=== PATIENT | female | born 1995 | race Caucasian/White ===

== ENCOUNTER 2017-06-07 08:14 | Emergency (ER) | payer OTHER ==
[~2017-06-07] VITALS: Ht 170.2 cm; Wt 56.8 kg
[~2017-06-07 08:14] MED LIST: OMEP20TA86 PO
[2017-06-07 08:20] VITALS: BP 130/79; PULSE 75; RESP 22; O2SAT 98
--- NOTE | 2017-06-07 08:27 | ED.REPORT ---
HPI-Abd Pain F Under 40 Date of Service Jun 07, 2017 ED Provider: Carlos A Rothman MD Patient is a 22 year old female who presents to the ED complaining of generalized abdominal pain that has been chronic over the last 2 years but is worse today. She has a hiatal hernia. Associated symptom include vomiting, diarrhea, and decreased oral intake. She denies hematemesis, hematochezia, constipation, or any other symptoms. Pt has has similar pain with previous hernias that was resolved with surgery. Her last period was 3 weeks ago. Nursing Notes Stated Complaint: VOMITING/ABDOMINAL PAIN Chief Complaint: Female Abdominal Pain Nursing Notes Reviewed: Yes Allergies: Coded Allergies: No Known Drug Allergies (Verified Allergy, Unknown, 06/07/17) Scheduled Omeprazole (Omeprazole) 20 Mg Tablet.dr 20 MG PO DAILY Omeprazole (Omeprazole) 40 Mg Capsule.dr 40 MG PO BID Ranitidine (Ranitidine) 150 Mg Capsule 150 MG PO DAILY General Time Seen by MD: 08:26 Chief Complaint Abdominal pain Hx Obtained From: Patient, Spouse Arrived By: Walk-in Sudden in Onset?: Yes Onset Occurred: Yesterday Symptom Duration: Since onset Severity: Current: Severe Severity: Maximum: Severe Similar Sx Previous: Yes Past Medical History Past Medical History Dx umbilical hernia x3 in 09/2015 hiatal hernia GERD Past Surgical History Hernia repair Smoking History Never Smoker Social History Drug Use: THC Ambulatory Status Independent Review of Systems Review of Systems Note: +decreased oral intake GI: Reports: Abdominal pain, Diarrhea, Vomiting, Denies: Constipation, Hematemesis, Hematochezia Complete sys rev & neg: except as marked. Physical Exam Initial Vital Signs Vital Signs (First) Date Time Temp Pulse Resp B/P Pulse Ox O2 Delivery O2 Flow Rate FiO2 06/07/17 08:20 36.4 75 22 130/79 98 Room Air Initial VS: Reviewed, Vital signs normal Head / Eyes: Atraumatic, Normocephalic Neck: Full range of motion Skin: Warm, Dry Neurologic: Alert, Oriented, Nonfocal Psychiatric: Mood/affect normal, Behavior normal, Normal thought content General/Constitutional: Awake, Alert Distress / Hydration: Positive: Distress moderate Respiratory / Chest: Atraumatic, Breath sounds NL, Breath sounds = bilat, No respiratory distress Cardiovascular: Heart rate NL, Regular rhythm, Heart sounds NL, No murmurs Abdomen: Atraumatic, Soft Diffuse abdominal tenderness Back: Atraumatic Interpretation & Diagnostics Lab Results Interpretation Result Diagram: 06/07/17 0855 06/07/17 0855 Test 06/07/17 08:53 06/07/17 08:55 Urine Color Yellow (YELLOW) Urine Appearance Hazy (CLEAR,HAZY) Urine pH 6.0 (5.0-8.0) Urine Specific [place] 1.020 (1.003-1.035) Urine Protein Negativemg/dL (NEG,TRACE) Urine Glucose (UA) Negativemg/dL (NEGATIVE) Urine Ketones Tracemg/dL (NEGATIVE) Urine Occult Blood Negative (NEGATIVE) Urine Nitrite Negative (NEGATIVE) Urine Bilirubin Negative (NEGATIVE) Urine Urobilinogen Normalmg/dL (NORMAL) Urine Leukocyte Esterase Negative (NEGATIVE) Urine RBC 0-2/hpf (0-2) Urine WBC 0-5/hpf (0-5) Urine Epithelial Cells Moderate/hpf (NONE-MOD) Urine Crystals None seen (NONE SEEN) Urine Bacteria Moderate/hpf (NONE-FEW) Urine Hyaline Casts None/lpf (NONE) Urine Granular Casts None seen (NONE SEEN) Urine Waxy Casts None seen (NONE SEEN) Urine Red Blood Cell Casts None seen (NONE SEEN) Urine White Blood Cell Casts None seen (NONE SEEN) Urine Mucus Present (None Seen) Urine Trichomonas None seen (NONE SEEN) Urine Yeast None (NONE SEEN) Urinalysis Comment None Urine Culture Reflexed Indicated White Blood Count 8.8th/mm3 (3.8-10.1) Red Blood Count 4.43mil/mm3 (3.90-5.20) Hemoglobin 13.8g/dL (12.0-15.6) Hematocrit 38.5% (35.0-46.0) Mean Corpuscular Volume 86.9fL (81-100) Mean Corpuscular Hemoglobin 31.2pg (27.0-35.0) Mean Corpuscular Hemoglobin Concent 35.8% (32.0-37.0) Red Cell Distribution Width 11.6% (12.3-15.4) Platelet Count 196bil/L (150-400) Neutrophils (%) (Auto) 82.9% (40-74) Lymphocytes (%) (Auto) 12.7% (14-46) Monocytes (%) (Auto) 3.9% (4-12) Eosinophils (%) (Auto) 0.3% (0-5) Basophils (%) (Auto) 0.1% (0-3) Sodium Level 142mEq/L (134-144) Potassium Level 3.6mEq/L (3.5-5.2) Chloride Level 107mEq/L (97-108) Carbon Dioxide Level 20mmol/L (18-29) Blood Urea Nitrogen 12mg/dL (6-20) Creatinine 0.70mg/dL (0.57-1.00) Estimat Glomerular Filtration Rate 150mL/min (>59) Glucose Level 105mg/dL (60-99) Calcium Level 9.6mg/dL (8.5-10.1) Magnesium Level 1.8mg/dL (1.6-2.6) Total Bilirubin 0.6mg/dL (0.0-1.2) Aspartate Amino Transf (AST/SGOT) 16U/L (0-50) Alanine Aminotransferase (ALT/SGPT) 19U/L (0-32) Alkaline Phosphatase 47U/L (25-150) Total Protein 7.5g/dL (6.4-8.4) Albumin 4.5g/dL (3.4-5.0) Lipase 21U/L (13-60) CT Abd / Pelvis Interpretation IMPRESSION: 1. No acute intra-abdominal findings. The appendix is not visualized; however, there are no ancillary findings to suggest acute appendicitis. No findings to explain abdominal pain. 2. No abnormal or inguinal hernias visualized. Dictated by: Tina Guo M.D. on 06/07/2017 at 10:16 Approved by: Tina Guo M.D. on 06/07/2017 at 10:21 Study type: Abdominal CT IV contrast Interpretation / Wet Read by: Interpret - Radiologist Re-Eval/Medical Decision Med Decision/Clinical Course Med Decision/Clinical Course: 22-year-old female history of hiatal hernia, acid reflux, chronic abdominal pain presenting with acute worsening of her chronic abdominal pain. This is typical of her chronic symptoms. She had endoscopy recently which showed gastritis and hiatal hernia. Given the severity of her pain today CT scan was performed which showed no acute pathology. Her pain improved with GI cocktail. We will discharge with PPI, ranitidine, Tums as needed. Follow-up with primary doctor possible referral back to GI as well as possible referral for hiatal hernia to surgery. Return precautions given. Re-Evaluation/Progress : Time of Eval: 10:38 )( Re-Eval Abdomen: Soft Re-Evaluation/Progress Note: Discussed CT results and plan for discharge. Patient understands and agrees with plan. All questions addressed at this time. Counseled Regarding: Diagnosis, Lab results, Need for follow-up, When/why to return to ED Discharge & Departure Primary Impression: Chronic abdominal pain Additional Impressions: Acid reflux Esophagitis presence: esophagitis presence not specified Qualified Code: K21.9 - Gastro-esophageal reflux disease without esophagitis Hiatal hernia Disposition: Home Discharge Condition All VS Reviewed: Yes Condition: Stable Patient Instructions: Chronic Abdominal Pain (ED), Hiatal Hernia (ED) Additional Instructions: Thank you for entrusting us with your care. Your labs, CT scan, and examination are reassuring. We did not find a dangerous cause for your symptoms at this time. Establish primary care by calling the number provided. You may benefit from a referral back to GI as well as a referral to surgery. Return to the emergency department for increasing pain, persistent vomiting, bloody stools or vomit, high fever, or any other new or worsening symptoms. Referrals: Kristyn Mcadams MD Attestation Portions of this note were transcribed by Stephen Davis. I, Dr. Rothman personally performed the history, physical exam and medical decision-making; I reviewed and confirmed the accuracy of the information in the transcribed note. Signed by: Melissa Townsend, 06/07/17 copies to: rKistyn Mcadams MD, Ben M MD Jun 07, 2017 08:27 STEPHEN DAVIS Jun 07, 2017 08:48
[2017-06-07] MEDS ORDERED: 0.9% Sodium Chloride 1,000 ML IV ONE (08:47)
[2017-06-07] MEDS ORDERED: Ondansetron 2 mg/mL 2 mL Inj IVPUSH PRN (08:50)
[2017-06-07] MEDS ORDERED: LidocaineVisc 2%:Antacid 1:1 10 mL Syringe PO ONE (08:55)
[2017-06-07 09:17] LABS: APPEARANCE,URINE HAZY (CLEAR,HAZY); COLOR,URINE YELLOW (YELLOW)
[2017-06-07 09:18] LABS: OCCULT BLOOD,URINE NEGATIVE (NEGATIVE); UROBILINOGEN,URINE NORMAL (NORMAL)
[2017-06-07 09:20] LABS: BASOPHILS % (AUTO) 0.1 % (0-3); EOSINOPHILS % (AUTO) 0.3 % (0-5); MONOCYTES % (AUTO) 3.9 % (4-12); Mean Corpuscular Hemoglobin 31.2 pg (27.0-35.0); Mean Corpuscular Volume 86.9 fL (81-100); NEUTROPHILS % (AUTO) 82.9 % (40-74); Platelet Count 196 bil/L (150-400)
[2017-06-07 09:44] LABS: Magnesium 1.8 mg/dL (1.6-2.6)
--- NOTE | 2017-06-07 10:24 | DRSVH ---
PROCEDURE: CT ABDOMEN AND PELVIS WITH CONTRAST ([id number]) INDICATIONS: abd pain TECHNIQUE: After the administration of intravenous contrast, 5 mm thick sections acquired from the diaphragm to the symphysis. 5 mm coronal and sagittal reformats were acquired. For radiation dose reduction, the following was used: automated exposure control, adjustment of mA and/or kV according to patient siz e. COMPARISON: None. FINDINGS: Image quality: Excellent. ABDOMEN: Lung bases: Lung bases are clear. Heart size is normal. Solid organs: Liver and spleen are normal in size and enhancement. Gallbladder is unremarkable. Bi liary system is non dilated. Pancreas enhances normally. No adrenal nodules. Kidneys demonstrate n ormal size and enhancement, without hydronephrosis. Peritoneum and bowel: Bowel loops demonstrate normal wall thickness and caliber. The appendix is not visualized; however there is no discrete right lower quadrant fluid or fat stranding to suggest acut e appendicitis. No free fluid or air. Nodes and vessels: No retroperitoneal or mesenteric adenopathy by size criteria. Aorta and inferior vena cava are normal in size. Miscellaneous: No ventral hernias. PELVIS: Genitourinary: Bladder wall thickness is normal. Miscellaneous: No inguinal hernias or adenopathy. Bones: No suspicious bony lesions. No vertebral body compression fractures. IMPRESSION: 1. No acute intra-abdominal findings. The appendix is not visualized; however, there are no ancillary findings to suggest acute appendicitis. No findings to explain abdominal pain. 2. No abnormal or inguinal hernias visualized. Dictated by: Tina Guo M.D. on 06/07/2017 at 10:16 Approved by: Tina Guo M.D. on 06/07/2017 at 10:21
[2017-06-07 10:26] VITALS: BP 112/51; PULSE 75; O2SAT 100
[2017-06-07] MEDS ORDERED: OMEP40CA36 PO (10:53)
[2017-06-07] MEDS ORDERED: RANI150C4 PO (10:53)
[2017-06-07] MEDS ORDERED: HYDROcodone-APAP 5-325 mg Tablet PO ONE (10:55)
[2017-06-07 11:02] VITALS: BP 112/51; PULSE 75; RESP 22; O2SAT 100
== END 2017-06-07 11:05 | disposition home or self-care (01) ==
LOC: SED 08:14
DX: K21.9 Gastro-esophageal reflux disease without esophagitis (principal); K44.9 Diaphragmatic hernia without obstruction or gangrene
CPT/HCPCS: 36415; 74177; 80053; 81000; 81025; 83690; 83735; 85025; 87086; 87088; 96361; 96374; 96375; 99285; J2270; J2405; J7030; Q9967